=== PATIENT | female | born 1960 | race Caucasian/White ===

== ENCOUNTER 2018-12-06 19:05 | Observation (INO) ==
[2018-12-06] MEDS ORDERED: Acetaminophen 325 MG Tablet PO ONE (21:00)
[2018-12-06] MEDS ORDERED: Ibuprofen 600 MG Tablet PO ONE (21:00)
[2018-12-06] MEDS ORDERED: Sod Chloride 0.9% Inj 1,000 ML IV.SIG SCH ×2 (21:15→23:45)
--- NOTE | 2018-12-06 21:22 | ED ---
HPI General Chief Complaint: Respiratory Symptoms Stated Complaint: Dizziness/Cough/Light headed/Body ache Time Seen by Provider: 12/06/18 20:54 Source: patient Mode of arrival: ambulatory Limitations: no limitations History of Present Illness MD Complaint: Reports fever, cough, sore throat, rhinorrhea, nasal congestion and sinus pain Onset (ago): day(s) (4) Duration: constant Severity: moderate Relieving factors: nothing Exacerbating factors: speaking Able to tolerate fluids by mouth: Yes Context: Reports sick contacts Associated symptoms: Reports fever, chills, myalgias, headache, rhinorrhea, nasal congestion, sore throat and cough; Denies stiff neck, chest pain, shortness of breath, abdominal pain, nausea, vomiting and diarrhea Related Data Previous Rx's Medication Instructions Recorded albuterol sulfate 2 inh INHALATION Q6-8H PRN #18 g 12/06/18 azithromycin See Label Instructions .ROUTE 12/06/18 .COMPLEX #6 tab methylprednisolone [Medrol (Bo)] 4 mg PO PER PKG DIR #21 each 12/06/18 Allergies Allergy/AdvReac Type Severity Reaction Status Date / Time No Known Allergies Allergy Verified 12/06/18 21:00 [facility] Medical History Medical History Patient denies medical problems (Acute) Surgical History Surgical History No history of previous surgery (Acute) Social History Social History Substance History: Past History Second Hand Smoke Exposure: No Smoking Status: Former smoker Tobacco Type: Cigarettes How Often Do You Have a Drink Containing Alcohol: Never Recent Travel in [facility] within the Last 8 Weeks: No Recent Out of Country Travel within the Last 8 Weeks: No Immunization History Tetanus Immunization: Unsure Course Initial Documented Vital Signs Temperature 99.6 F 12/06/18 19:10 Pulse Rate 105 H 12/06/18 19:10 Respiratory Rate 18 12/06/18 19:10 Blood Pressure 120/64 12/06/18 19:10 Pulse Oximetry 95 12/06/18 19:10 Last Documented Vital Signs Temperature 100 F H 12/06/18 22:33 Pulse Rate 83 12/07/18 02:10 Respiratory Rate 12/07/18 02:10 Blood Pressure 97/50 L 12/07/18 02:09 Pulse Oximetry 95 12/07/18 02:09 Medical Decision Making MDM Narrative Medical decision making narrative: Patient accepted in transfer of care from [facility] covering patient for Dr. Anders for hypotension noted by patient's nurse in process of discharging patient home. 58-year-old female presents to the emergency room of cough congestion subjective fever since . Patient states that she is progressively worsened with severe sore throat. Patient states today she actually was so symptomatic that she found herself on the kitchen floor and believe she had a fainting spell. Patient denies post syncope headache neck pain back pain chest pain abdominal pain joint pain or swelling. Patient had no skin rash. Patient's had no sinus pressure drainage no earache no neck stiffness no chest pain or shortness of breath but has had very congested cough. No vomiting no diarrhea no abdominal pain no dysuria frequency or urgency. Patient takes no prescription medications. Prior to her fall since she has had head pain neck pain back pain sore throat congested cough myalgias arthralgias. Physical exam patient noted to have blood pressure of 88 systolic had received 1.5 L of IV fluids while waiting for lab results; lung sounds clear to auscultation heart sounds no meningismus no nuchal rigidity sinuses nontender to percussion airway is patent tympanic membranes no redness dullness or loss of landmarks. Patient has no skin rash and no noted regular rate and rhythm without tachycardia abdomen soft nontender no guarding or rebound flank nontender to percussion joint swelling or increased warmth. Labs remarkable for CBC metabolic panel and urinalysis are found to be in normal range influenza test negative and rapid strep negative chest x-ray shows no pneumonia. Additional labs ordered along with additional liter of normal saline. CT brain noncontrast ordered in view of syncopal episode. EKG cardiac enzymes lactic acid blood cultures collected. Medical Screen Exam Complete: Yes Emergency Medical Condition: Yes Lab Data Result diagrams: 12/06/18 21:30 12/06/18 21:30 Lab Results 12/06/18 12/06/18 12/06/18 Range/Units 21:30 21:30 22:15 CBC w Diff Auto diff final WBC 11.6 H (4.0-11.0) th/mm3 RBC 4.08 (4.00-5.30) mil/mm3 Hgb 11.4 L (11.6-15.3) gm/dL Hct 35.0 (35.0-46.0) % MCV 85.8 (80.0-100.0) fL MCH 28.0 (27.0-34.0) pg MCHC 32.6 (32.0-36.0) % RDW 12.0 (11.6-17.2) % Plt Count 183 (150-450) th/mm3 MPV 8.3 (7.0-11.0) fL Neut % (Auto) 62.2 (16.0-70.0) % Lymph % (Auto) 22.9 (9.0-44.0) % [facility] % (Auto) 10.2 H (0.0-8.0) % Eos % (Auto) 0.0 (0.0-4.0) % Baso % (Auto) 4.7 H (0.0-2.0) % Neut # (Auto) 7.2 (1.8-7.7) th/mm3 Lymph # (Auto) 2.7 (1.0-4.8) th/mm3 [facility] # (Auto) 1.2 H (0.0-0.9) th/mm3 Eos # (Auto) 0.0 (0.0-0.4) th/mm3 Baso # (Auto) 0.5 H (0.0-0.2) th/mm3 WBC Differential . Differential Comment . D-Dimer Quant (PE/DVT) (0.00-0.50) mg/L FEU Sodium 137 (136-145) meq/L Potassium 3.7 (3.5-5.1) meq/L Chloride 104 (98-107) meq/L Carbon Dioxide 26.7 (21.0-32.0) meq/L Anion Gap 6 (5-15) meq/L BUN 8 (7-18) mg/dL Creatinine 0.75 (0.50-1.00) mg/dL Estimated GFR 79 L (>89) mL/min Random Glucose 123 H (74-106) mg/dL Lactic Acid (0.4-2.0) mmol/L Calcium 8.3 L (8.5-10.1) mg/dL Magnesium 1.9 (1.5-2.5) mg/dL Troponin I Less than 0.02 L (0.02-0.05) ng/mL Urine Color Yellow (Yellw/Straw) Urine Clarity Clear (Clear) Urine pH 6.0 (5.0-8.5) Ur Specific [place] 1.015 (1.002-1.035) Urine Protein 30 H (Neg-Trace) mg/dL Urine Glucose (UA) Negative (Negative) mg/dL Urine Ketones Negative (Negative) mg/dL Urine Occult Blood Small H (Negative) Urine Nitrate Negative (Negative) Urine Bilirubin Negative (Negative) Urine Urobilinogen 2.0 H (Less than 2) mg/dL Ur Leukocyte Esterase Negative (Negative) Urine RBC 4-15 H (0-3) /hpf Urine WBC 0-5 (0-5) /hpf Ur Squamous Epith Cells 0-5 (0-5) /hpf Urine Bacteria Rare H (None) /hpf Urine Mucus Rare H (Occasional) /lpf Micro UA Comment Culture not ind Ur Microscopic Review Microscopic reviewed Urine Culture Comments Culture not ind 12/07/18 12/07/18 Range/Units 00:05 01:37 CBC w Diff WBC (4.0-11.0) th/mm3 RBC (4.00-5.30) mil/mm3 Hgb (11.6-15.3) gm/dL Hct (35.0-46.0) % MCV (80.0-100.0) fL MCH (27.0-34.0) pg MCHC (32.0-36.0) % RDW (11.6-17.2) % Plt Count (150-450) th/mm3 MPV (7.0-11.0) fL Neut % (Auto) (16.0-70.0) % Lymph % (Auto) (9.0-44.0) % [place] % (Auto) (0.0-8.0) % Eos % (Auto) (0.0-4.0) % Baso % (Auto) (0.0-2.0) % Neut # (Auto) (1.8-7.7) th/mm3 Lymph # (Auto) (1.0-4.8) th/mm3 [facility] # (Auto) (0.0-0.9) th/mm3 Eos # (Auto) (0.0-0.4) th/mm3 Baso # (Auto) (0.0-0.2) th/mm3 WBC Differential Differential Comment D-Dimer Quant (PE/DVT) 0.48 (0.00-0.50) mg/L FEU Sodium (136-145) meq/L Potassium (3.5-5.1) meq/L Chloride (98-107) meq/L Carbon Dioxide (21.0-32.0) meq/L Anion Gap (5-15) meq/L BUN (7-18) mg/dL Creatinine (0.50-1.00) mg/dL Estimated GFR (>89) mL/min Random Glucose (74-106) mg/dL Lactic Acid 1.3 (0.4-2.0) mmol/L Calcium (8.5-10.1) mg/dL Magnesium (1.5-2.5) mg/dL Troponin I (0.02-0.05) ng/mL Urine Color (Yellw/Straw) Urine Clarity (Clear) Urine pH (5.0-8.5) Ur Specific [place] (1.002-1.035) Urine Protein (Neg-Trace) mg/dL Urine Glucose (UA) (Negative) mg/dL Urine Ketones (Negative) mg/dL Urine Occult Blood (Negative) Urine Nitrate (Negative) Urine Bilirubin (Negative) Urine Urobilinogen (Less than 2) mg/dL Ur Leukocyte Esterase (Negative) Urine RBC (0-3) /hpf Urine WBC (0-5) /hpf Ur Squamous Epith Cells (0-5) /hpf Urine Bacteria (None) /hpf Urine Mucus (Occasional) /lpf Micro UA Comment Ur Microscopic Review Urine Culture Comments Imaging Data Radiologist's impression: Chest X-Ray 12/06/18 21:00 CONCLUSION: No acute cardiopulmonary disease Head CT 12/06/18 23:56 CONCLUSION: Negative exam . . Discharge Plan Discharge Disposition Patient Disposition: 01 Discharge Home Discharge Condition Condition: Stable Discharge Order Discharge Orders: Discharge Order (Routine); Ordered 12/06/18 Ordered By: Alba Venegas ED Use Only Admit Order (Routine); Ordered 12/07/18 Ordered By: Olga Ramirez Discharge Details Diagnosis: Viral infection, Bronchitis Physicians Team ED Provider: Olga Ramirez ED Midlevel Provider: Alba Venegas Primary Care Provider: Primary Care Minnie Chavez Attending Provider: Joi Crowell Status ED Status: Admitted Observation Patient
[2018-12-06 21:40] LABS: Baso # (Auto) 0.5 th/mm3 (0.0-0.2); Baso % (Auto) 4.7 % (0.0-2.0); Hemoglobin 11.4 gm/dL (11.6-15.3); Lymph # (Auto) 2.7 th/mm3 (1.0-4.8); Lymph % (Auto) 22.9 % (9.0-44.0); Mean Corpuscular HGB Conc 32.6 % (32.0-36.0); Mean Corpuscular Volume 85.8 fL (80.0-100.0); Mean Platelet Volume 8.3 fL (7.0-11.0); Mono # (Auto) 1.2 th/mm3 (0.0-0.9); Mono % (Auto) 10.2 % (0.0-8.0); Neut # (Auto) 7.2 th/mm3 (1.8-7.7); Neut % (Auto) 62.2 % (16.0-70.0); Platelet Count 183 th/mm3 (150-450); Red Blood Count 4.08 mil/mm3 (4.00-5.30); White Blood Count 11.6 th/mm3 (4.0-11.0)
[2018-12-06 21:47] LABS: Chloride 104 meq/L (98-107); Potassium 3.7 meq/L (3.5-5.1); Sodium 137 meq/L (136-145)
[2018-12-06 21:50] LABS: Anion Gap 6 meq/L (5-15); Blood Urea Nitrogen 8 mg/dL (7-18); Calcium 8.3 mg/dL (8.5-10.1); Carbon Dioxide 26.7 meq/L (21.0-32.0); Glucose,Random 123 mg/dL (74-106)
[2018-12-06 21:54] LABS: Glomerular Filtration Rate 79 mL/min (>89)
--- NOTE | 2018-12-06 22:13 | XR ---
EXAM DATE: 12/06/2018 10:11 PM EST AGE/SEX: 58 years / Female INDICATIONS: Cough. CLINICAL DATA: This is the patient's initial encounter. Patient reports that signs and symptoms have been present for 3 days and indicates a pain score of 0/10. MEDICAL/SURGICAL HISTORY: None. None. COMPARISON: No prior exams available for comparison. FINDINGS: A single AP view of the chest demonstrates the lungs to be symmetrically aerated without evidence of mass, infiltrate or effusion. The cardiomediastinal contours are unremarkable. Osseous structures a re intact. CONCLUSION: No acute cardiopulmonary disease Electronically signed by: Alin Hale MD Board Certified Radiologist 12/06/2018 10:12 PM EST
[2018-12-06 22:29] LABS: Bilirubin,Urine Negative (Negative); Clarity,Urine Clear (Clear); Color,Urine Yellow (Yellw/Straw); Glucose,Urine (UA) Negative (Negative); Leukocyte Esterase,Urine Negative (Negative); Nitrite,Urine Negative (Negative); Specific Gravity,Urine 1.015 (1.002-1.035)
[2018-12-06 22:34] LABS: Squamous Epithelial Cell,Urine 0-5 /hpf (0-5); WBC,Urine 0-5 /hpf (0-5)
[2018-12-06 22:35] LABS: Bacteria,Urine Rare /hpf; Mucus,Urine Rare /lpf (Occasional)
[2018-12-06] MEDS ORDERED: Sodium Chlor 0.9% Inj 500 ML IV.SIG SCH (23:00)
[2018-12-07 00:18] LABS: Magnesium 1.9 mg/dL (1.5-2.5)
--- NOTE | 2018-12-07 00:44 | CT ---
EXAM DATE: 12/07/2018 12:28 AM EST AGE/SEX: 58 years / Female INDICATIONS: Syncope CLINICAL DATA: This is the patient's initial encounter. Patient reports that signs and symptoms have been present for 1 day and indicates a pain score of 0/10. MEDICAL/SURGICAL HISTORY: None. None. RADIATION DOSE: 57.35 CTDI (mGy) COMPARISON: No prior exams available for comparison. TECHNIQUE: CT of the head without contrast. Using automated exposure control and adjustment of the mA and/or kV according to patient size, radiation dose was kept as low as reasonably achievable to ob tain optimal diagnostic quality images. DICOM format image data is available electronically for revi ew and comparison. FINDINGS: Cerebrum: The ventricles are normal for age. No evidence of midline shift, mass lesion, hemorrhage or acute infarction. No extraaxial fluid collections are seen. Posterior Fossa: The cerebellum and brainstem are intact. The 4th ventricle is midline. The cerebe llopontine angle is unremarkable. Extracranial: The visualized portion of the orbits is intact. Skull: The calvaria is intact. No evidence of skull fracture. CONCLUSION: Negative exam . . Electronically signed by: Duke Allen MD Board Certified Radiologist 12/07/2018 12:42 AM EST
[2018-12-07] MEDS ORDERED: Vancomycin Inj 1,000 MG in Sodium Chlor 0.9% Inj 250 ML IV.SIG ONE (00:51)
[2018-12-07] MEDS ORDERED: Sod Chloride 0.9% Inj 1,000 ML IV.SIG SCH (01:00)
[2018-12-07] MEDS ORDERED: Bisacodyl 10 MG Supp RECTAL PRN (02:40)
[2018-12-07] MEDS ORDERED: Acetaminophen 325 MG Tablet PO PRN (02:40)
[2018-12-07] MEDS ORDERED: Sod Chloride 0.9% Inj 1,000 ML IV.CONT SCH (02:45)
[2018-12-07] MEDS ORDERED: Heparin - SQ 10,000 UNITS/ML Vial SQ SCH (02:45)
[2018-12-07] MEDS: Sod Chloride 0.9% Inj 1,000 ML IV.CONT SCH ×2 (05:34→20:16)
[2018-12-07] MEDS: levoFLOXacin 750 MG Tablet PO SCH (10:59)
--- NOTE | 2018-12-07 11:06 | P.HPIM ---
History of Present Illness Service: Hospitalist Primary Care Physician: No Primary Care Physician Chief Complaint: Cough, fever, shortness of breath History of Present Illness: Ms. Bowser is a pleasant 58-year-old female with 40-year smoking history who presents to the emergency department on 12/06/2018 due to cough, shortness of breath, fever. Symptoms started on Wednesday , 12/02/2018. She has been progressively getting worse. She reports fever around 101-102 F. She has significant cough but not able to bring up sputum. On the day of admission, she was in the kitchen and she passed out. Subsequently she was brought to the emergency department. CT head was negative. Chest x-ray was also negative. Past medical history: No significant past medical history. Past surgical history: No significant surgeries in the past. Social history: Patient has a history of 40 years of smoking. She quit 5 years ago. She denies using alcohol or illicit drugs. Family history: No family history of heart disease, cancer. Review of Systems Review of Systems: all other systems reviewed are negative [facility] Medical History Medical History Patient denies medical problems (Acute) Surgical History Surgical History No history of previous surgery (Acute) Social History Social History Substance History: Past History Second Hand Smoke Exposure: No Smoking Status: Former smoker Tobacco Type: Cigarettes How Often Do You Have a Drink Containing Alcohol: Never Recent Travel in [place] within the Last 8 Weeks: No Recent Out of Country Travel within the Last 8 Weeks: No Immunization History Tetanus Immunization: Unsure Medications and Allergies Allergies Allergy/AdvReac Type Severity Reaction Status Date / Time No Known Allergies Allergy Verified 12/06/18 21:00 Active Medications: Active Medications Acetaminophen (Tylenol) 650 mg PO Q4H PRN PRN Reason: Temp > 100.4 Al Hydroxide/Mg Hydroxide (Milk Of Magnesia Liq) 30 ml PO Q12H PRN PRN Reason: Mild Constipation Albuterol (Duoneb Neb (Prn)) 1 ampul NEB Q2HR NEB PRN PRN Reason: SHORTNESS OF BREATH/WHEEZING Albuterol (Duoneb Neb (Rosaura)) 1 ampul NEB Q6HR WHILE AWAKE NEB ROSAURA Bisacodyl (Dulcolax Supp) 10 mg RECTAL DAILY PRN PRN Reason: SEVERE CONSITIPATION Enoxaparin Sodium (Lovenox Inj) 40 mg SQ DAILY ROSAURA Sodium Chloride (Ns Inj) 1,000 mls @ 70 mls/hr IV.CONT .[id number] [facility] Last Admin: 12/07/18 05:34 Dose: 70 mls/hr Lactulose (Lactulose Liq) 30 ml PO DAILY PRN PRN Reason: SEVERE CONSITIPATION Levofloxacin (Levaquin) 750 mg PO DAILY [facility] Stop: 12/14/18 10:29 Ondansetron HCl (Zofran Inj) 4 mg IV.PUSH Q6H PRN PRN Reason: NAUSEA OR VOMITING Prednisone (Deltasone) 50 mg PO DAILY [facility] Stop: 12/12/18 10:29 Sennosides (Senokot) 17.2 mg PO Q12H PRN PRN Reason: Moderate Constipation Sodium Chloride (Ns Flush) 2 ml IV.FLUSH BID [facility] Last Admin: 12/07/18 09:09 Dose: Not Given Sodium Chloride (Ns Flush) 2 ml IV.FLUSH PRN PRN PRN Reason: FLUSH AFTER USING IV ACCESS Physical Exam Vital signs: Vital Signs 12/06/18 19:10 12/06/18 20:31 12/06/18 21:18 Temperature 99.6 F 99.6 F Pulse Rate 105 H 105 H 91 H Respiratory Rate 18 18 17 Blood Pressure 120/64 Pulse Oximetry 95 95 12/06/18 22:33 12/06/18 22:56 12/06/18 23:45 Temperature 100 F H Pulse Rate 88 80 Respiratory Rate 20 20 Blood Pressure 99/61 L 100/55 L 77/41 L Pulse Oximetry 91 L 97 96 12/06/18 23:55 12/07/18 00:17 12/07/18 02:09 Temperature Pulse Rate 78 92 H Respiratory Rate 16 16 16 Blood Pressure 90/46 L 100/55 L 97/50 L Pulse Oximetry 95 95 95 12/07/18 02:10 12/07/18 03:36 12/07/18 05:00 Temperature 98.9 F Pulse Rate 83 79 80 Respiratory Rate 19 16 16 Blood Pressure 99/63 L 97/52 L Pulse Oximetry 98 12/07/18 05:42 12/07/18 05:49 12/07/18 07:30 Temperature 96.3 F L Pulse Rate 75 75 Respiratory Rate 16 Blood Pressure 101/61 Pulse Oximetry 94 L 95 12/07/18 08:00 Temperature 97.1 F L Pulse Rate 71 Respiratory Rate 20 Blood Pressure 103/57 L Pulse Oximetry 93 L Intake & Output 12/06/18 12/07/18 12/07/18 18:59 06:59 18:59 Intake Total 3850 / 3850 Balance 3850 / 3850 Weight 64.4 kg Intake: IV 3850 / 3850 Maxipime Inj 2,000 MG In NS Inj 100 / 100 100 ML @ 200 mls/hr IV.SIG ONCE ONE Rx#:[id number] NS Inj 1,000 ML @ 1000 mls/hr 3000 / 3000 IV.SIG BOLUS ROSAURA Rx#:[id number] NS Inj 500 ML @ 1000 mls/hr IV. 500 / 500 SIG BOLUS ROSAURA Rx#:[id number] Vancomycin Inj 1,000 MG In NS 250 / 250 Inj 250 ML @ 250 mls/hr IV.SIG ONCE ONE Rx#:[id number] Other: # Voids 1 Weight On Admission 63.503 kg Narrative: GENERAL: This is a well-nourished, well-developed patient, in no apparent distress. SKIN: No rashes, ecchymoses or lesions. Warm and dry. HEAD: Atraumatic. Normocephalic. No temporal or scalp tenderness. EYES: Pupils equal round and reactive. No injection or drainage. ENT: Nose without bleeding, purulent drainage or septal hematoma. Airway patent. NECK: Trachea midline. No lymphadenopathy. Supple, nontender, no meningeal signs. CARDIOVASCULAR: Regular rate and rhythm without murmurs, gallops, or rubs. No JVD. RESPIRATORY: Moderate air entry, diffusely coarse breath sounds with scattered wheezing. GASTROINTESTINAL: Abdomen soft, non-tender, nondistended. No guarding. MUSCULOSKELETAL: Extremities without clubbing, cyanosis, or edema. NEUROLOGICAL: Awake and alert. Cranial nerves II through XII intact. No focal neurological deficits. Normal speech. Results Labs CBC & Chem 7: 12/06/18 21:30 12/06/18 21:30 Imaging Impressions Chest X-Ray 12/06/18 21:00 CONCLUSION: No acute cardiopulmonary disease Head CT 12/06/18 23:56 CONCLUSION: Negative exam . . Caprini VTE Risk Assessment Caprini VTE Risk Assessment: Moderate/High Risk (score >= 2) Caprini Risk Assessment Model: Point Value = 1 Point Value = 2 Point Value = 3 Point Value = 5 Age 41-60 Minor surgery BMI > 25 kg/m2 Swollen legs Varicose veins or History of unexplained or recurrent spontaneous Oral contraceptives or hormone replacement Sepsis (< 1 month) Serious lung disease, including pneumonia (< 1 month) Abnormal pulmonary function Acute myocardial infarction Congestive heart failure (< 1 month) History of inflammatory bowel disease Medical patient at bed rest Age 61-74 Arthroscopic surgery Major open surgery (> 45 min) Laparoscopic surgery (> 45 min) Malignancy Confined to bed (> 72 hours) Immobilizing plaster cast Central venous access Age >= 75 History of VTE Family history of VTE Factor V Leiden Prothrombin [id number] Lupus anticoagulant Anticardiolipin antibodies Elevated serum homocysteine Heparin-induced thrombocytopenia Other congenital or acquired thrombophilia Stroke (< 1 month) Elective arthroplasty Hip, pelvis, or leg fracture Acute spinal cord injury (< 1 month) Prophylaxis Regimen: Total Risk Factor Score Risk Level Prophylaxis Regimen 0-1 Low Early ambulation 2 Moderate Order ONE of the following: *Sequential Compression Device (SCD) *Heparin 5000 units SQ BID 3-4 Higher Order ONE of the following medications: *Heparin 5000 units SQ TID *Enoxaparin/Lovenox 40 mg SQ daily (WT < 150 kg, CrCl > 30 mL/min) *Enoxaparin/Lovenox 30 mg SQ daily (WT < 150 kg, CrCl > 10-29 mL/min) *Enoxaparin/Lovenox 30 mg SQ BID (WT < 150 kg, CrCl > 30 mL/min) AND/OR *Sequential Compression Device (SCD) 5 or more Highest Order ONE of the following medications: *Heparin 5000 units SQ TID (Preferred with Epidurals) *Enoxaparin/Lovenox 40 mg SQ daily (WT < 150 kg, CrCl > 30 mL/min) *Enoxaparin/Lovenox 30 mg SQ daily (WT < 150 kg, CrCl > 10-29 mL/min) *Enoxaparin/Lovenox 30 mg SQ BID (WT < 150 kg, CrCl > 30 mL/min) AND *Sequential Compression Device (SCD) Assessment and Plan Plan Ms. Bowser is a pleasant 58-year-old female with a history of smoking for 40 years who presents to the emergency department on 12/06/2018 due to cough , shortness of breath, fever. She passed out in her kitchen on the day of admission and was subsequently brought to the hospital. Probable community-acquired pneumonia Probable COPD exacerbation Patient does have a history of smoking for 40 years. Outpatient PFT would be recommended. Chest x-ray was read as negative. However, left lower lung field does appear to have some scattered infiltrates. Clinically, patient symptoms are consistent with pneumonia -fever, cough, shortness of breath, mild leukocytosis We will start patient on Levaquin 750 mg p.o. daily for 7 days, prednisone 50 mg daily for 5 days DuoNeb scheduled and as needed Supplemental oxygen to keep O2 saturation around 90%. Wean off O2. If symptoms do not improve, we can consider CT chest. Syncopal episode -Likely due to pneumonia. CT head was negative. Full code. Lovenox for DVT prophylaxis. Discharge plan: If symptoms improve, patient can likely be discharged within next 24-48 hours. H&P: Quality VTE Deep Vein Thrombosis/Pulmonary Embolism Present on Admission: No
--- NOTE | 2018-12-07 22:42 | ECG ---
Date Performed: 12/07/2018 Time Performed: 01:03:17 PTAGE: 58 years EKG: Sinus rhythm WITH FIRST DEGREE AV BLOCK NONSPECIFIC T-WAVE ABNORMALITY ABNORMAL ECG WARNING: DATA QUALITY MAY AFF ECT INTERPRETATION NO PREVIOUS TRACING DOCTOR: Alexsander Solis Interpretating Date/Time 12/07/2018 22:41:11
[2018-12-08 06:39] LABS: Baso # (Auto) 0.1 th/mm3 (0.0-0.2); Baso % (Auto) 0.6 % (0.0-2.0); Eos % (Auto) 0.1 % (0.0-4.0); Hemoglobin 10.2 gm/dL (11.6-15.3); Lymph # (Auto) 2.3 th/mm3 (1.0-4.8); Lymph % (Auto) 19.6 % (9.0-44.0); Mean Corpuscular Hemoglobin 28.4 pg (27.0-34.0); Mean Corpuscular Volume 86.2 fL (80.0-100.0); Mean Platelet Volume 9.1 fL (7.0-11.0); Mono # (Auto) 0.8 th/mm3 (0.0-0.9); Mono % (Auto) 6.5 % (0.0-8.0); Neut # (Auto) 8.7 th/mm3 (1.8-7.7); Neut % (Auto) 73.2 % (16.0-70.0); Platelet Count 164 th/mm3 (150-450); Red Blood Count 3.59 mil/mm3 (4.00-5.30); White Blood Count 11.9 th/mm3 (4.0-11.0)
[2018-12-08 07:05] LABS: Anion Gap 9 meq/L (5-15); Blood Urea Nitrogen 6 mg/dL (7-18); Calcium 8.4 mg/dL (8.5-10.1); Carbon Dioxide 23.1 meq/L (21.0-32.0); Chloride 113 meq/L (98-107); Glomerular Filtration Rate Greater Than 89 mL/min (>89); Glucose,Random 114 mg/dL (74-106); Potassium 3.4 meq/L (3.5-5.1); Sodium 145 meq/L (136-145)
[2018-12-08] MEDS ORDERED: Enoxaparin Inj 40 MG/0.4 ML Syringe SQ SCH (09:00)
[2018-12-08] MEDS: levoFLOXacin 750 MG Tablet PO SCH (09:03)
[2018-12-08] MEDS: Sod Chloride 0.9% Inj 1,000 ML IV.CONT SCH (10:27)
--- NOTE | 2018-12-08 10:46 | P.PNIM ---
Subjective Interval history: Follow-up community-acquired pneumonia December 08, 2018-patient seen and examined, reports significant improvement of cough and shortness of breath. No acute event overnight. Looking forward went home. Afebrile. Physical Exam Vital signs: Vital Signs 12/07/18 12:10 12/07/18 14:51 12/07/18 15:55 Temperature 98 F 96.8 F L Pulse Rate 72 70 83 Respiratory Rate 20 18 20 Blood Pressure 98/56 L 121/59 L Pulse Oximetry 97 94 L 12/07/18 16:00 12/07/18 20:00 12/07/18 20:29 Temperature 98.7 F Pulse Rate 88 78 83 Respiratory Rate 18 18 Blood Pressure 111/62 Pulse Oximetry 94 L 95 12/08/18 00:00 12/08/18 04:00 12/08/18 07:36 Temperature 98 F 97.4 F L Pulse Rate 77 65 75 Respiratory Rate 18 18 18 Blood Pressure 106/57 L 103/57 L Pulse Oximetry 97 97 96 12/08/18 08:00 Temperature 97.4 F L Pulse Rate 75 Respiratory Rate 20 Blood Pressure 118/76 Pulse Oximetry 96 Intake & Output 12/07/18 12/08/18 12/08/18 18:59 06:59 18:59 Intake Total 2049 Balance 2049 Weight 63.3 kg Intake: IV 1000 / 1000 NS Inj 1,000 ML @ 70 mls/hr IV. 1000 / 1000 CONT .[id number] MARIKA Rx#: [id number] Oral 1050 / 1050 Other: # Voids 5 3 # Bowel Movements 1 1 Narrative: GENERAL: This is a well-nourished, well-developed patient, in no apparent distress. SKIN: No rashes, ecchymoses or lesions. Warm and dry. HEAD: Atraumatic. Normocephalic. No temporal or scalp tenderness. EYES: Pupils equal round and reactive. No injection or drainage. ENT: Nose without bleeding, purulent drainage or septal hematoma. Airway patent. NECK: Trachea midline. No lymphadenopathy. Supple, nontender, no meningeal signs. CARDIOVASCULAR: Regular rate and rhythm without murmurs, gallops, or rubs. No JVD. RESPIRATORY: Moderate air entry, diffusely coarse breath sounds with scattered wheezing. GASTROINTESTINAL: Abdomen soft, non-tender, nondistended. No guarding. MUSCULOSKELETAL: Extremities without clubbing, cyanosis, or edema. NEUROLOGICAL: Awake and alert. Cranial nerves II through XII intact. No focal neurological deficits. Normal speech. Results Labs CBC & Chem 7: 12/08/18 05:25 12/08/18 05:25 Assessment and Plan Plan 58-year-old female with Probable community-acquired pneumonia Probable COPD exacerbation-improving Patient does have a history of smoking for 40 years. Outpatient PFT would be recommended. Chest x-ray was read as negative. However, left lower lung field does appear to have some scattered infiltrates. Currently on Levaquin 750 mg p.o. daily for 7 days, prednisone 50 mg daily for 5 days DuoNeb scheduled and as needed Supplemental oxygen to keep O2 saturation around 90%. Syncopal episode-resolved -Likely due to pneumonia. CT head was negative. Full code. Lovenox for DVT prophylaxis. Patient's conditions tremendously improved since admission, therefore she will be discharged home. Discharge patient to home Condition on discharge: Improved Regular Diet as tolerated Ad Jemma activity Rx written: See EMR Follow-up with primary care physician Progress Note: Quality VTE Deep Vein Thrombosis/Pulmonary Embolism Present on Admission: No
[2018-12-08 12:45] VITALS: BP 111/69; TEMP 97.1; O2SAT 98
[2018-12-08 14:39] VITALS: PULSE 76; RESP 16
== END 2018-12-08 15:00 | disposition home or self-care (01) ==
LOC: PHEFT 19:05 → PHEDA 12-07 02:38 → INTOOBSV 12-07 02:38 → PH3 12-07 05:10
PROVIDERS: ADMIT Hospitalist; ATTEND Hospitalist
DX: J44.9 Chronic obstructive pulmonary disease, unspecified; R50.9 Fever, unspecified; R06.02 Shortness of breath; R05 Cough; R55 Syncope and collapse; Z87.891 Personal history of nicotine dependence
CPT/HCPCS: 70450; 71010; 71045; 80048; 81001; 83605; 83735; 84484; 85025; 85379; 87040; 87081; 87275; 87276; 87804; 87880; 90761; 90765; 90767; 93005; 94640; 94665; 96361; 96365; 96367; 96372; 99285; G0378; J0692; J1644; J1650; J3370; J7030; J7040; J7050; J7506; J7512